=== PATIENT | female | born 1975 | race Caucasian/White ===

== ENCOUNTER 2018-12-27 14:00 | Observation (INO) | payer SELFPAY ==
[2018-12-27] MEDS ORDERED: Lactated Ringers 1,000 ML IV SCH (14:30)
--- NOTE | 2018-12-27 14:33 | EDM.PDOCBH ---
ED HPI GENERAL MEDICAL PROBLEM - General Chief Complaint: Drug or Alcohol Abuse Stated Complaint: TOOK MORE MEDS THAN NEEDED Time Seen by Provider: 12/27/18 14:17 Source of Information: Reports: Patient, RN Notes Reviewed - History of Present Illness INITIAL COMMENTS - FREE TEXT/NARRATIVE: 43-year-old female presents to emergency department today via EMS services, she does admit to consumption of a variety of medications intentionally including Wellbutrin, gabapentin and losartan she is not forthcoming with dosing and exact number of pills. She also consumed an unknown amount of time laundry detergent. She does admit to not want to live anymore is the reason she took all this medication. Abdomen Pain Score (Numeric/FACES): 8 - Related Data Allergies Allergy/AdvReac Type Severity Reaction Status Date / Time No Known Allergies Allergy Verified 12/27/18 14:22 Home Meds: Home Meds FLUoxetine [PROzac] 20 mg PO DAILY 08/08/18 [History] Labetalol [Normodyne] 100 mg PO BID 08/08/18 [History] buPROPion [buPROPion XL] 150 mg PO DAILY 08/08/18 [History] risperiDONE [Risperidone] 0.5 mg PO DAILY 08/08/18 [History] Albuterol Sulfate [Proair Hfa] 2 puff INH ASDIRECTED 12/27/18 [History] Doxycycline [Doxycycline Hyclate] 100 mg PO BID 12/27/18 [History] Losartan [Cozaar] 50 mg PO DAILY 12/27/18 [History] Triamcinolone Acetonide [Triamcinolone Acetonide 0.1% Crm] 1 applic TOP ASDIRECTED 12/27/18 [History] metFORMIN [Glucophage XR] 1,000 mg PO DAILY 12/27/18 [History] Past Medical History Cardiovascular History: Reports: Hypertension - Infectious Disease History Infectious Disease History: Reports: Chicken Pox, Shingles - Past Surgical History HEENT Surgical History: Reports: Tonsillectomy GI Surgical History: Reports: Appendectomy Female Surgical History: Reports: Hysterectomy Social & Family History - Caffeine Use Caffeine Use: Reports: None ED ROS GENERAL - Review of Systems Review Of Systems: See Below Constitutional: Reports: No Symptoms HEENT: Reports: No Symptoms Respiratory: Reports: No Symptoms Cardiovascular: Reports: No Symptoms GI/Abdominal: Reports: No Symptoms : Reports: No Symptoms Musculoskeletal: Reports: No Symptoms Skin: Reports: No Symptoms Neurological: Reports: No Symptoms Psychiatric: Reports: Depression, Suicidal Ideation ED EXAM, BEHAVIORAL HEALTH - Physical Exam Exam: See Below Text/Narrative:: General: Female, tearful, alert and oriented x3 HEENT: head is atraumatic normocephalic, eyes pupils equal round reactive to light, sclera clear no conjunctivitis appreciated. Ears tympanic membranes clear and scott landmarks and light reflex are present bilaterally canals are clear. Nose no septal deviation, nares are clear, no blood present. Mouth mucosa is moist and pink no erythema or exudate noted in soft palate, tongue is midline uvula is midline , dentition is intact. Neck: Supple no thyromegaly no tracheal deviation. Nodes: Cervical nodes subclavicular nodes nontender no palpable lymphadenopathy noted. Lungs: clear to auscultation bilaterally with symmetrical respirations, no adventitious noise appreciated. CV: Regular rate and rhythm S1 and S2 appreciated no murmurs rubs or gallops noted. Abdomen: Soft, nontender, no palpable masses or organomegaly appreciated, no distention no guarding bowel sounds are present, . Neuro: GCS 15 ,Cranial nerves II test with pupillary light reflex 4 mm to 2 mm bilaterally, CN III test pupillary constriction, limited elevation and eye abduction bilaterally, CN IV downward movement of eyes bilaterally, CN V good jaw movement, CN lateral deviation of the eyes bilaterally to finger movement , CN VII symmetrical smile shows teeth without difficulty, CN VIII pass finger rub to ears bilaterally, CN IX adequate voice and tone, CN X adequate voice and tone no difficulty swallowing, CN XI can shrug shoulders without difficulty, CN XII can stick tongue out without difficulty, cranial nerves II to XII intact as tested, Skin: Warm and dry, intact Extremities: No lower extremity edema appreciated, pedal pulse is +2. COURSE, BEHAVIORAL HEALTH COMP - Course Vital Signs: Last Vital Signs Temp 97.2 F 12/27/18 14:12 Pulse 80 12/27/18 15:59 Resp 15 12/27/18 15:59 BP 95/54 L 12/27/18 15:59 Pulse Ox 93 L 12/27/18 15:59 Orders, Labs, Meds: Active Orders 24 hr Category Date Time Status EKG Documentation Completion [RC] ASDIRECTED Care 12/27/18 14:20 Active Peripheral IV Care [RC] . DIRECTED Care 12/27/18 14:19 Active DRUG SCREEN, URINE [URCHEM] Stat Lab 12/27/18 16:19 Ordered UA W/MICROSCOPIC [URIN] Urgent Lab 12/27/18 16:19 Ordered Lactated Ringers [Ringers, Lactated] 1,000 ml Med 12/27/18 14:30 Active IV ASDIRECTED Potassium Chloride [KCL 20 MEQ in Water 100 ML] 20 meq Med 12/27/18 15:16 Active Premix Bag 1 bag IV ONETIME Sodium Chloride 0.9% [Saline Flush] Med 12/27/18 14:18 Active 10 ml FLUSH ASDIRECTED PRN Peripheral IV Insertion Adult [OM.PC] Urgent Oth 12/27/18 14:18 Ordered Seizure Precautions [OM.PC] Routine Oth 12/27/18 16:19 Ordered EKG 12 Lead [EK] Stat Ther 12/27/18 14:20 Ordered Medication Orders Lactated Ringer's (Ringers, Lactated) 1,000 mls @ 125 mls/hr IV ASDIRECTED JACLYN Last Admin: 12/27/18 15:13 Dose: 125 mls/hr Potassium Chloride 20 meq/ (Premix) 100 mls @ 50 mls/hr IV ONETIME ONE Stop: 12/27/18 17:15 Last Admin: 12/27/18 16:12 Dose: 50 mls/hr Sodium Chloride (Saline Flush) 10 ml FLUSH ASDIRECTED PRN PRN Reason: Keep Vein Open Last Admin: 12/27/18 15:13 Dose: 10 ml Laboratory Tests 12/27/18 12/27/18 12/27/18 Range/Units 14:20 14:20 14:20 WBC 5.7 (4.5-11.0) K/uL RBC 4.67 (3.30-5.50) M/uL Hgb 15.1 H (12.0-15.0) g/dL Hct 44.0 (36.0-48.0) % MCV 94 (80-98) fL MCH 32 H (27-31) pg MCHC 34 (32-36) % Plt Count 217 (150-400) K/uL Neut % (Auto) 55 (36-66) % Lymph % (Auto) 31 (24-44) % [place] % (Auto) 13 H (2-6) % Eos % (Auto) 1 L (2-4) % Baso % (Auto) 1 (0-1) % Sodium 142 (140-148) mmol/L Potassium 2.9 L* (3.6-5.2) mmol/L Chloride 101 (100-108) mmol/L Carbon Dioxide 26 (21-32) mmol/L Anion Gap 17.9 H (5.0-14.0) mmol/L BUN 9 (7-18) mg/dL Creatinine 0.7 (0.6-1.0) mg/dL Est Cr Clr Drug Dosing 79.00 mL/min Estimated GFR (MDRD) > 60 (>60) Glucose 96 (74-106) mg/dL Calcium 8.6 (8.5-10.1) mg/dL Total Bilirubin 0.4 (0.2-1.0) mg/dL AST 121 H (15-37) U/L ALT 105 H (12-78) U/L Alkaline Phosphatase 96 (46-116) U/L Total Protein 6.2 L (6.4-8.2) g/dL Albumin 3.2 L (3.4-5.0) g/dL Globulin 3.0 (2.3-3.5) g/dL Albumin/Globulin Ratio 1.1 L (1.2-2.2) Salicylates 2.7 (2.0-20.0) mg/dL Acetaminophen < 2.0 L (10.0-30.0) ug/mL Ethyl Alcohol mg/dL 12/27/18 Range/Units 14:20 WBC (4.5-11.0) K/uL RBC (3.30-5.50) M/uL Hgb (12.0-15.0) g/dL Hct (36.0-48.0) % MCV (80-98) fL MCH (27-31) pg MCHC (32-36) % Plt Count (150-400) K/uL Neut % (Auto) (36-66) % Lymph % (Auto) (24-44) % [place] % (Auto) (2-6) % Eos % (Auto) (2-4) % Baso % (Auto) (0-1) % Sodium (140-148) mmol/L Potassium (3.6-5.2) mmol/L Chloride (100-108) mmol/L Carbon Dioxide (21-32) mmol/L Anion Gap (5.0-14.0) mmol/L BUN (7-18) mg/dL Creatinine (0.6-1.0) mg/dL Est Cr Clr Drug Dosing mL/min Estimated GFR (MDRD) (>60) Glucose (74-106) mg/dL Calcium (8.5-10.1) mg/dL Total Bilirubin (0.2-1.0) mg/dL AST (15-37) U/L ALT (12-78) U/L Alkaline Phosphatase (46-116) U/L Total Protein (6.4-8.2) g/dL Albumin (3.4-5.0) g/dL Globulin (2.3-3.5) g/dL Albumin/Globulin Ratio (1.2-2.2) Salicylates (2.0-20.0) mg/dL Acetaminophen (10.0-30.0) ug/mL Ethyl Alcohol 278 mg/dL Medications Generic Name Dose Route Start Last Admin Trade Name Freq PRN Reason Stop Dose Admin Lactated Ringer's 1,000 mls @ 125 mls/hr 12/27/18 14:30 12/27/18 15:13 Ringers, Lactated IV 125 mls/hr ASDIRECTED JACLYN Administration Potassium Chloride 20 meq/ 100 mls @ 50 mls/hr 12/27/18 15:16 12/27/18 16:12 Premix IV 12/27/18 17:15 50 mls/hr ONETIME ONE Administration Sodium Chloride 10 ml 12/27/18 14:18 12/27/18 15:13 Saline Flush FLUSH 10 ml ASDIRECTED PRN Administration Keep Vein Open Departure - Departure Time of Disposition: 16:22 Disposition: Admitted As Inpatient 67 Condition: Poor Clinical Impression: Suicide attempt - Discharge Information Referrals: PCP,None [Primary Care Provider] - Forms: ED Department Discharge - My Orders Last 24 Hours: My Active Orders 12/27/18 14:18 Sodium Chloride 0.9% [Saline Flush] 10 ml FLUSH ASDIRECTED PRN Peripheral IV Insertion Adult [OM.PC] Urgent 12/27/18 14:19 Peripheral IV Care [RC] . DIRECTED 12/27/18 14:20 EKG Documentation Completion [RC] ASDIRECTED EKG 12 Lead [EK] Stat 12/27/18 14:30 Lactated Ringers [Ringers, Lactated] 1,000 ml IV ASDIRECTED 12/27/18 15:16 Potassium Chloride [KCL 20 MEQ in Water 100 ML] 20 meq Premix Bag 1 bag IV ONETIME 12/27/18 16:19 DRUG SCREEN, URINE [URCHEM] Stat UA W/MICROSCOPIC [URIN] Urgent Seizure Precautions [OM.PC] Routine - Assessment/Plan Last 24 Hours: My Active Orders 12/27/18 14:18 Sodium Chloride 0.9% [Saline Flush] 10 ml FLUSH ASDIRECTED PRN Peripheral IV Insertion Adult [OM.PC] Urgent 12/27/18 14:19 Peripheral IV Care [RC] . DIRECTED 12/27/18 14:20 EKG Documentation Completion [RC] ASDIRECTED EKG 12 Lead [EK] Stat 12/27/18 14:30 Lactated Ringers [Ringers, Lactated] 1,000 ml IV ASDIRECTED 12/27/18 15:16 Potassium Chloride [KCL 20 MEQ in Water 100 ML] 20 meq Premix Bag 1 bag IV ONETIME 12/27/18 16:19 DRUG SCREEN, URINE [URCHEM] Stat UA W/MICROSCOPIC [URIN] Urgent Seizure Precautions [OM.PC] Routine Plan: Assessment Acuity = acute Site and laterality = suicidal attempt Etiology = intentional ingestion of laundry soap and multiple medications Manifestations = none Location of injury = Home Lab values = CBC unremarkable potassium low at 2.9 consistent hyperkalemia AST elevated 1:21 AM T elevated 105 consistent with elevated liver enzymes alcohol is 278 salicylate and acetaminophen are both negative urinalysis and drug screen are pending EKG demonstrates a sinus rhythm QT corrected is 500 chest x- ray shows no acute process Plan Call discuss case hospitalist registration officer at [phone] he kindly agreed to come and evaluate the patient emergency department for admission, she may be at risk for esophageal burn secondary to the laundry detergent ingestion may need a EGD for psychiatric placement This note was dictated using [employer] voice recognition software please call with any questions on syntax or grammar.
[2018-12-27 14:59] LABS: ACETAMINOPHEN < 2.0 ug/mL (10.0-30.0)
[2018-12-27] MEDS: Sodium Chloride 0.9% 10 ML Syringe FLUSH PRN ×3 (15:13→22:24)
[2018-12-27] MEDS ORDERED: Potassium Chloride 20 MEQ in Premix Bag 1 BAG IV ONE (15:16)
--- NOTE | 2018-12-27 15:30 | CRLCR ---
HISTORY: Intentional ingestion of laundry soap. COMPARISON: None available FINDINGS: A portable erect AP view of the chest was obtained at 1505 hours. The lungs are clear. No focal or diffuse infiltrates are present. The heart is normal in size. The mediastinum is normal in appearance. The osseous structures are normal in appearance for the patient`s age. IMPRESSION: Normal portable chest single view. Dictated by Bc Calle MD @ Dec 27 2018 3:27PM Signed by Dr. Bc Calle @ Dec 27 2018 3:29PM
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
[2018-12-27] MEDS ORDERED: Ibuprofen 600 MG Tab PO PRN (17:12)
[2018-12-27] MEDS ORDERED: Acetaminophen 325 MG Tab PO PRN (17:12)
[2018-12-27] MEDS ORDERED: LORazepam 2 MG/ML SDV IVPUSH PRN (17:12)
[2018-12-27] MEDS ORDERED: Promethazine 25 MG Tab PO PRN (17:12)
[2018-12-27] MEDS: Nicotine 14 MG/24 Hr Patch TRDERM SCH (18:20)
[2018-12-27] MEDS ORDERED: Potassium Chloride 20 MEQ, Lidocaine 1% 2 ML in Sodium Chloride 0.9% 100 ML IV SCH (18:30)
[2018-12-27] MEDS ORDERED: risperiDONE 0.5 MG Tab PO SCH (21:00)
[2018-12-27] MEDS ORDERED: LABETALOL 100 MG PO SCH (21:00)
[2018-12-27] MEDS: Labetalol 100 MG Tab PO SCH (21:26)
[2018-12-27] MEDS: Doxycycline 100 MG Cap PO SCH (21:26)
[2018-12-28] MEDS: Doxycycline 100 MG Cap PO SCH (08:42)
[2018-12-28] MEDS: Nicotine 14 MG/24 Hr Patch TRDERM SCH (08:43)
[2018-12-28] MEDS: Labetalol 100 MG Tab PO SCH (08:43)
[2018-12-28] MEDS ORDERED: Potassium Chloride 20 MEQ Tab.ER PO ONE (08:45)
[2018-12-28] MEDS ORDERED: FLUOXETINE 20 MG PO SCH (09:00)
[2018-12-28] MEDS ORDERED: FLUoxetine 20 MG Cap PO SCH (09:00)
--- NOTE | 2018-12-28 10:11 | PCM.DCSUM1 ---
Discharge Summary - Hospital Course Brief History: 43-year-old female with history of major depression, essential hypertension who presented after an intentional drug overdose, alcohol intoxication. She was admitted for observation and further evaluation of her mental health and potential suicidal intentions. Diagnosis: Stroke: No - Discharge Data Discharge Date: 12/28/18 Discharge Disposition: Home, Self-Care 01 Condition: Good - Discharge Diagnosis/Problem(s) (1) Intentional drug overdose SNOMED Code(s): 56947611 ICD Code: T50.902A - POISONING BY UNSP DRUG/MEDS/BIOL SUBST, SELF-HARM, INIT Status: Acute Qualifiers: Encounter type: initial encounter Qualified Code(s): T50.902A - Poisoning by unspecified drugs, medicaments and biological substances, intentional self- harm, initial encounter (2) Hypokalemia SNOMED Code(s): 22692572 ICD Code: E87.6 - HYPOKALEMIA Status: Acute (3) Alcohol intoxication SNOMED Code(s): 20184375 ICD Code: F10.929 - ALCOHOL USE, UNSPECIFIED WITH INTOXICATION, UNSPECIFIED Status: Acute Qualifiers: Complication of substance-induced condition: uncomplicated Qualified Code(s ): F10.920 - Alcohol use, unspecified with intoxication, uncomplicated - Patient Summary/Data Hospital Course: Camron presented to the emergency room yesterday by ambulance after an intentional ingestion of several of her home medications while she was intoxicated. there was also allegedly an ingestion of Tide laundry detergent prior to ambulance pickup. Initially she reported that she was trying to hurt herself with the ingestion but was remorseful and happy that nothing bad happened. Because her ingestion included extended release Wellbutrin poison control recommended overnight observation with cardiac monitoring. also noted in the emergency room was hypokalemia. The patient was admitted to the intensive care unit for close monitoring with the ingestion and concerning content of the ingestion. Overnight she had some difficulty with nausea and vomiting. This has resolved after a dose of lorazepam. There were no abnormalities on cardiac monitoring. Vital signs have all been stable. The morning after admission she tolerated a clear liquid breakfast with no nausea or vomiting. She has a mild headache but otherwise physically feels okay. We discussed the ingestion and her current and past difficulties with mental health. At this time I feel comfortable with outpatient management. The patient was remorseful for her ingestion. She does not report any suicidal ideations or plans at this time. She is optimistic for the future. She displays a variety of emotions including smiling and some tears. She makes good eye contact and is engaged with her who is her primary support at this time. Her is also comfortable with our plan for outpatient mental health follow-up. The patient will continue on her previous home medications. He follow-up appointment was scheduled in 2 days time and she will be establishing care here in [facility]. I counseled her that if she does have additional thoughts of suicide or self-harm that she should contact [facility] or the suicide prevention hotline. She is in good spirits and I believe she will do well after hospital discharge. - Patient Instructions Diet: Regular Diet as Tolerated Activity: As Tolerated Showering/Bathing: May Shower Notify Provider of: Fever, Increased Pain, Nausea and/or Vomiting Other/Special Instructions: 1. You were hospitalized for observation after an intentional drug overdose. I strongly recommend early follow-up with a mental health provider in the community and an appointment has been scheduled for you. They can provide counseling services and medication management to help with your major depression. 2. Continue your previous home medications as prescribed. 3. Follow up with [facility] as scheduled. 4. Seek medical attention if you develop suicidal ideations or thoughts. You can seek help by calling [email or web address] or by calling the suicide prevention hotline at - Discharge Plan *PRESCRIPTION DRUG MONITORING PROGRAM REVIEWED*: Not Applicable *COPY OF PRESCRIPTION DRUG MONITORING REPORT IN PATIENT ASAEL: Not Applicable Home Medications: Home Meds FLUoxetine [PROzac] 20 mg PO DAILY 08/08/18 [History] Labetalol [Normodyne] 100 mg PO BID 08/08/18 [History] buPROPion [buPROPion XL] 150 mg PO DAILY 08/08/18 [History] risperiDONE 0.5 mg PO DAILY 08/08/18 [History] Albuterol Sulfate [Proair Hfa] 2 puff INH ASDIRECTED 12/27/18 [History] Doxycycline [Vibramycin] 100 mg PO BID 12/27/18 [History] Losartan [Cozaar] 50 mg PO DAILY 12/27/18 [History] Triamcinolone Acetonide [Triamcinolone Acetonide 0.1% Crm] 1 applic TOP ASDIRECTED 12/27/18 [History] metFORMIN [Glucophage XR] 1,000 mg PO DAILY 12/27/18 [History] Oxygen Therapy Mode: Room Air Patient Handouts: Suicidal Feelings: How to Help Yourself Referrals: Lizeth Aleman MD [Ordering Only Provider] - (1-2 weeks - f/u hospital stay for depression) - Discharge Summary/Plan Comment DC Time >30 min.: No - Patient Data Vitals - Most Recent: Last Vital Signs Temp 37.3 C 12/28/18 08:00 Pulse 90 12/28/18 08:43 Resp 16 12/28/18 08:00 BP 143/93 H 12/28/18 08:43 Pulse Ox 96 12/28/18 08:00 Weight - Most Recent: 98.9 kg I&O - Last 24 hours: Intake & Output 12/27/18 12/28/18 12/28/18 22:59 06:59 14:59 Intake Total 593 Output Total 1 Balance -1 593 Lab Results - Last 24 hrs: Laboratory Results - last 24 hr 12/27/18 12/27/18 12/27/18 Range/Units 14:20 14:20 14:20 WBC 5.7 (4.5-11.0) K/uL RBC 4.67 (3.30-5.50) M/uL Hgb 15.1 H (12.0-15.0) g/dL Hct 44.0 (36.0-48.0) % MCV 94 (80-98) fL MCH 32 H (27-31) pg MCHC 34 (32-36) % Plt Count 217 (150-400) K/uL Neut % (Auto) 55 (36-66) % Lymph % (Auto) 31 (24-44) % [place] % (Auto) 13 H (2-6) % Eos % (Auto) 1 L (2-4) % Baso % (Auto) 1 (0-1) % Sodium 142 (140-148) mmol/L Potassium 2.9 L* (3.6-5.2) mmol/L Chloride 101 (100-108) mmol/L Carbon Dioxide 26 (21-32) mmol/L Anion Gap 17.9 H (5.0-14.0) mmol/L BUN 9 (7-18) mg/dL Creatinine 0.7 (0.6-1.0) mg/dL Est Cr Clr Drug Dosing 79.00 mL/min Estimated GFR (MDRD) > 60 (>60) Glucose 96 (74-106) mg/dL Calcium 8.6 (8.5-10.1) mg/dL Total Bilirubin 0.4 (0.2-1.0) mg/dL AST 121 H (15-37) U/L ALT 105 H (12-78) U/L Alkaline Phosphatase 96 (46-116) U/L Total Protein 6.2 L (6.4-8.2) g/dL Albumin 3.2 L (3.4-5.0) g/dL Globulin 3.0 (2.3-3.5) g/dL Albumin/Globulin Ratio 1.1 L (1.2-2.2) Urine Color Urine Appearance Urine pH (4.5-8.0) Ur Specific Jones (1.008-1.030) Urine Protein (NEGATIVE) mg/dL Urine Glucose (UA) (NEGATIVE) mg/dL Urine Ketones (NEGATIVE) mg/dL Urine Occult Blood (NEGATIVE) Urine Nitrite (NEGATIVE) Urine Bilirubin (NEGATIVE) Urine Urobilinogen (NORMAL) mg/dL Ur Leukocyte Esterase (NEGATIVE) Urine RBC (0-5) Urine WBC (0-5) Ur Epithelial Cells Amorphous Sediment Urine Bacteria Urine Mucus Salicylates 2.7 (2.0-20.0) mg/dL Urine Opiates Screen (NEGATIVE) Ur Oxycodone Screen (NEGATIVE) Urine Methadone Screen (NEGATIVE) Ur Propoxyphene Screen (NEGATIVE) Acetaminophen < 2.0 L (10.0-30.0) ug/mL Ur Barbiturates Screen (NEGATIVE) Ur Tricyclics Screen (NEGATIVE) Ur Phencyclidine Scrn (NEGATIVE) Ur Amphetamine Screen (NEGATIVE) U Methamphetamines Scrn (NEGATIVE) Urine MDMA Screen (NEGATIVE) U Benzodiazepines Scrn (NEGATIVE) U Cocaine Metab Screen (NEGATIVE) U Marijuana (THC) Screen (NEGATIVE) Ethyl Alcohol mg/dL 12/27/18 12/27/18 12/27/18 Range/Units 14:20 16:19 16:19 WBC (4.5-11.0) K/uL RBC (3.30-5.50) M/uL Hgb (12.0-15.0) g/dL Hct (36.0-48.0) % MCV (80-98) fL MCH (27-31) pg MCHC (32-36) % Plt Count (150-400) K/uL Neut % (Auto) (36-66) % Lymph % (Auto) (24-44) % [place] % (Auto) (2-6) % Eos % (Auto) (2-4) % Baso % (Auto) (0-1) % Sodium (140-148) mmol/L Potassium (3.6-5.2) mmol/L Chloride (100-108) mmol/L Carbon Dioxide (21-32) mmol/L Anion Gap (5.0-14.0) mmol/L BUN (7-18) mg/dL Creatinine (0.6-1.0) mg/dL Est Cr Clr Drug Dosing mL/min Estimated GFR (MDRD) (>60) Glucose (74-106) mg/dL Calcium (8.5-10.1) mg/dL Total Bilirubin (0.2-1.0) mg/dL AST (15-37) U/L ALT (12-78) U/L Alkaline Phosphatase (46-116) U/L Total Protein (6.4-8.2) g/dL Albumin (3.4-5.0) g/dL Globulin (2.3-3.5) g/dL Albumin/Globulin Ratio (1.2-2.2) Urine Color Yellow Urine Appearance Clear Urine pH 6.0 (4.5-8.0) Ur Specific Jones 1.010 (1.008-1.030) Urine Protein Trace (NEGATIVE) mg/dL Urine Glucose (UA) Normal (NEGATIVE) mg/dL Urine Ketones 15 H (NEGATIVE) mg/dL Urine Occult Blood Negative (NEGATIVE) Urine Nitrite Negative (NEGATIVE) Urine Bilirubin Negative (NEGATIVE) Urine Urobilinogen Normal (NORMAL) mg/dL Ur Leukocyte Esterase Negative (NEGATIVE) Urine RBC 0-5 (0-5) Urine WBC 0-5 (0-5) Ur Epithelial Cells Few Amorphous Sediment Not seen Urine Bacteria Moderate Urine Mucus Not seen Salicylates (2.0-20.0) mg/dL Urine Opiates Screen Negative (NEGATIVE) Ur Oxycodone Screen Negative (NEGATIVE) Urine Methadone Screen Negative (NEGATIVE) Ur Propoxyphene Screen Negative (NEGATIVE) Acetaminophen (10.0-30.0) ug/mL Ur Barbiturates Screen Negative (NEGATIVE) Ur Tricyclics Screen Negative (NEGATIVE) Ur Phencyclidine Scrn Negative (NEGATIVE) Ur Amphetamine Screen Negative (NEGATIVE) U Methamphetamines Scrn Presumptive positive H (NEGATIVE) Urine MDMA Screen Presumptive positive H (NEGATIVE) U Benzodiazepines Scrn Negative (NEGATIVE) U Cocaine Metab Screen Negative (NEGATIVE) U Marijuana (THC) Screen Negative (NEGATIVE) Ethyl Alcohol 278 mg/dL 12/27/18 12/28/18 Range/Units 22:00 05:50 WBC (4.5-11.0) K/uL RBC (3.30-5.50) M/uL Hgb (12.0-15.0) g/dL Hct (36.0-48.0) % MCV (80-98) fL MCH (27-31) pg MCHC (32-36) % Plt Count (150-400) K/uL Neut % (Auto) (36-66) % Lymph % (Auto) (24-44) % [place] % (Auto) (2-6) % Eos % (Auto) (2-4) % Baso % (Auto) (0-1) % Sodium 139 L (140-148) mmol/L Potassium 3.2 L 3.2 L (3.6-5.2) mmol/L Chloride 100 (100-108) mmol/L Carbon Dioxide 28 (21-32) mmol/L Anion Gap 14.2 H (5.0-14.0) mmol/L BUN 9 (7-18) mg/dL Creatinine 0.6 (0.6-1.0) mg/dL Est Cr Clr Drug Dosing 92.17 mL/min Estimated GFR (MDRD) > 60 (>60) Glucose 100 (74-106) mg/dL Calcium 8.3 L (8.5-10.1) mg/dL Total Bilirubin (0.2-1.0) mg/dL AST (15-37) U/L ALT (12-78) U/L Alkaline Phosphatase (46-116) U/L Total Protein (6.4-8.2) g/dL Albumin (3.4-5.0) g/dL Globulin (2.3-3.5) g/dL Albumin/Globulin Ratio (1.2-2.2) Urine Color Urine Appearance Urine pH (4.5-8.0) Ur Specific Jones (1.008-1.030) Urine Protein (NEGATIVE) mg/dL Urine Glucose (UA) (NEGATIVE) mg/dL Urine Ketones (NEGATIVE) mg/dL Urine Occult Blood (NEGATIVE) Urine Nitrite (NEGATIVE) Urine Bilirubin (NEGATIVE) Urine Urobilinogen (NORMAL) mg/dL Ur Leukocyte Esterase (NEGATIVE) Urine RBC (0-5) Urine WBC (0-5) Ur Epithelial Cells Amorphous Sediment Urine Bacteria Urine Mucus Salicylates (2.0-20.0) mg/dL Urine Opiates Screen (NEGATIVE) Ur Oxycodone Screen (NEGATIVE) Urine Methadone Screen (NEGATIVE) Ur Propoxyphene Screen (NEGATIVE) Acetaminophen (10.0-30.0) ug/mL Ur Barbiturates Screen (NEGATIVE) Ur Tricyclics Screen (NEGATIVE) Ur Phencyclidine Scrn (NEGATIVE) Ur Amphetamine Screen (NEGATIVE) U Methamphetamines Scrn (NEGATIVE) Urine MDMA Screen (NEGATIVE) U Benzodiazepines Scrn (NEGATIVE) U Cocaine Metab Screen (NEGATIVE) U Marijuana (THC) Screen (NEGATIVE) Ethyl Alcohol mg/dL Med Orders - Current: Current Medications Acetaminophen (Tylenol) 650 mg PO Q4H PRN PRN Reason: Pain (Mild 1-3)/fever Doxycycline Hyclate (Vibramycin) 100 mg PO BID [facility] Last Admin: 12/28/18 08:42 Dose: 100 mg Fluoxetine HCl (Prozac) 20 mg PO DAILY [facility] Last Admin: 12/28/18 08:42 Dose: 20 mg Ibuprofen (Motrin) 600 mg PO Q6H PRN PRN Reason: Pain/Fever Labetalol HCl (Normodyne) 100 mg PO BID [facility] Last Admin: 12/28/18 08:43 Dose: 100 mg Lorazepam (Ativan) 0.5 mg IVPUSH Q4H PRN PRN Reason: Nausea/Vomiting Last Admin: 12/27/18 22:20 Dose: 0.5 mg Nicotine (Habitrol) 14 mg TRDERM DAILY [facility] Last Admin: 12/28/18 08:43 Dose: 14 mg Promethazine HCl (Phenergan) 25 mg PO Q6H PRN PRN Reason: Nausea able to take PO Last Admin: 12/28/18 06:50 Dose: 25 mg Risperidone (Risperidal) 0.5 mg PO BEDTIME [facility] Last Admin: 12/27/18 21:26 Dose: 0.5 mg Sodium Chloride (Saline Flush) 10 ml FLUSH ASDIRECTED PRN PRN Reason: Keep Vein Open Last Admin: 12/27/18 22:24 Dose: 10 ml Discontinued Medications Lactated Ringer's (Ringers, Lactated) 1,000 mls @ 125 mls/hr IV ASDIRECTED [facility] Last Admin: 12/27/18 15:13 Dose: 125 mls/hr Potassium Chloride 20 meq/ (Premix) 100 mls @ 50 mls/hr IV ONETIME ONE Stop: 12/27/18 17:15 Last Admin: 12/27/18 16:12 Dose: 50 mls/hr Potassium Chloride 20 meq/Lidocaine HCl 2 ml/ Sodium Chloride 112 mls @ 56 mls/ hr IV Q2H [facility] Stop: 12/27/18 20:29 Last Admin: 12/27/18 18:17 Dose: 56 mls/hr Potassium Chloride (Klor-Con M20) 40 meq PO ONETIME ONE Stop: 12/28/18 08:46 Last Admin: 12/28/18 08:50 Dose: 40 meq - Exam Quality Assessment: Denies: Supplemental Oxygen General: Reports: Alert, Oriented, Cooperative, No Acute Distress Lungs: Reports: Normal Respiratory Effort Cardiovascular: Reports: Regular Rate, Regular Rhythm GI/Abdominal Exam: Soft, No Distention Extremities: No Pedal Edema Psy/Mental Status: Reports: Alert, Normal Affect
== END 2018-12-28 10:25 | disposition home or self-care (01) ==
LOC: JP.ED 14:00 → JP.ICU 16:36
PROVIDERS: ADMIT Internal Medicine; ATTEND Internal Medicine
DX: T43.292A Poisoning by other antidepressants, intentional self-harm, initial encounter (principal); T46.5X2A Poisoning by other antihypertensive drugs, intentional self-harm, initial encounter; T55.1X2A Toxic effect of detergents, intentional self-harm, initial encounter; F10.920 Alcohol use, unspecified with intoxication, uncomplicated; E87.6 Hypokalemia; I10 Essential (primary) hypertension; F32.9 Major depressive disorder, single episode, unspecified; R45.851 Suicidal ideations; Z79.899 Other long term (current) drug therapy
CPT/HCPCS: 36415; 71045; 80048; 80053; 80305; 81001; 84132; 85025; 93005; 96361; 96374; 99285; A9270; G0378; G0480; J2001; J2060; J3480; J7030; J7120; 93010; 96360

== ENCOUNTER 2019-02-13 05:03 | Emergency (ER) | payer OTHER ==
[2019-02-13] MEDS ORDERED: Ondansetron 4 MG/2 ML SDV IVPUSH ONE (05:36)
[2019-02-13] MEDS ORDERED: HYDROmorphone 0.5 MG/0.5 ML Syringe IVPUSH ONE ×2 (05:37→08:41)
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
[2019-02-13] MEDS ORDERED: Sodium Chloride 0.9% 1,000 ML IV SCH ×2 (05:45→07:30)
[2019-02-13] MEDS ORDERED: HYDROmorphone 1 MG/ML Syringe IVPUSH ONE (07:09)
--- NOTE | 2019-02-13 07:12 | CRLCR ---
INDICATION: Pain. FINDINGS: A 5 view acute abdominal series shows a normal cardiac silhouette. The lungs show left basilar atelectasis. No pneumothorax. Mildly dilated loops of small bowel in the mid abdomen. The no evidence of free intraperitoneal air. No other bony or soft tissue abnormalities identified. IMPRESSION: Mildly dilated loops of small bowel in the mid abdomen representing a mild ileus versus small-bowel obstruction. Dictated by Theo Zapata MD @ 02/13/2019 7:12:15 AM Dictated by: Theo Zapata MD @ 02/13/2019 07:12:21 (Electronically Signed)
[2019-02-13] MEDS ORDERED: Lactated Ringers 1,000 ML IV SCH (09:15)
--- NOTE | 2019-02-13 10:54 | CRLUS ---
INDICATION: Upper abdominal pain. FINDINGS: Abdominal ultrasound shows mild increased echogenicity of the liver. Normal liver size and contour. No focal liver lesions identified. Mild dilation of the common bile duct measuring just over 6 mm. The trace amount of sludge in the gallbladder. The gallbladder is otherwise unremarkable. Negative sonographic Ramos`s sign. No abnormalities identified in the visualized portions of the pancreatic head and body, IVC, and right kidney. No right-sided hydronephrosis. The aorta is not well visualized. IMPRESSION: 1. Trace amount of sludge in the gallbladder. No gallstones. The gallbladder is otherwise unremarkable. 2. Mild dilation of the common bile duct with no intrahepatic bile duct dilation. This is a nonspecific finding. Correlate with laboratory values. Dictated by Theo Zapata MD @ 02/13/2019 10:53:21 AM Dictated by: Theo Zapata MD @ 02/13/2019 10:53:29 (Electronically Signed)
== END 2019-02-13 09:10 | disposition other institution (70) ==
LOC: JP.ED 05:03
DX: K85.20 Alcohol induced acute pancreatitis without necrosis or infection (principal); I10 Essential (primary) hypertension; K21.9 Gastro-esophageal reflux disease without esophagitis; F17.210 Nicotine dependence, cigarettes, uncomplicated; Z79.899 Other long term (current) drug therapy; Z79.84 Long term (current) use of oral hypoglycemic drugs
CPT/HCPCS: 36415; 74022; 76705; 80053; 81001; 82150; 83605; 83690; 83880; 85025; 85610; 85730; 86140; 96361; 96374; 96375; 96376; 99285; J1170; J2405; J7030; J7120